=== PATIENT | female | born 1970 | race Caucasian/White ===

== ENCOUNTER → 2017-07-22 | Outpatient (CLI) | payer BC, OTHER ==
[2013-03-21 10:30] VITALS: BP 133/94
--- NOTE | 2017-07-22 12:56 | RAD ---
HISTORY: Paraspinous muscle spasms Study: Thoracic spine with swimmer's Comparison: None Findings: AP radiograph reveals very minimal convex right mid thoracic scoliosis. The pedicles appear to be in tact. The vertebral bodies can't intervertebral disc spaces are of normal height except for minimal disc space narrowing at a couple levels in the mid thoracic spine. There appears be mild to moderate cardiomegaly. This could artifactual secondary to the technique of the film. IMPRESSION: 1. Thoracic spondylosis as described above. 2. Possible cardiomegaly. Reported By:
--- NOTE | 2017-07-22 13:02 | RAD ---
HISTORY: Paraspinal muscle spasms Study: AP and lateral cervical spine Comparison: None Findings: The neutral lateral view demonstrates loss of normal cervical lordosis. Otherwise there is normal al ignment from C1 through T1. Prevertebral soft tissues normal. Posterior elements are intact. Pre o dontoid space is normal. Minimal uncovertebral joint hypertrophy is noted C5/C6 and C6/C7. The late ral masses C1 are symmetric about the lateral masses C2 and the odontoid process. IMPRESSION: 1. Cervical spondylosis as described above. 2. Loss of normal cervical lordosis which may be seen in normal individuals, be positional or second lucía to muscle spasm. 3. No acute bony abnormalities are identified. Reported By:
== END | disposition home or self-care (01) | DRG 552 ==
LOC: RAD 10:08
PROVIDERS: ATTEND Psychiatry & Neurology Neurology
DX: M62.830 Muscle spasm of back (principal); M62.838 Other muscle spasm; M47.892 Other spondylosis, cervical region
CPT/HCPCS: 72040; 72072